=== PATIENT | female | born 1985 | race Caucasian/White ===

== ENCOUNTER 2021-11-01 16:04 | Outpatient (REF) | payer MEDICAID, SELFPAY ==
--- NOTE | ~2021-11-01 | MR_ITS ---
EXAMINATION: MR BRAIN WITHOUT AND WITH CONTRAST CLINICAL INFORMATION: Follow-up multiple sclerosis. Headaches. Numbness in legs and feet. COMPARISON: None available. TECHNIQUE: Multiplanar, multisequence imaging of the brain was performed before and after the intravenous administration of 10 mL of Gadavist. FINDINGS: No diffusion abnormalities are identified to suggest an acute infarct. The ventricles are normal in size. No mass effect or midline shift is seen. Scattered foci of T2 hyperintense signal abnormality are present in the frontoparietal white matter of both hemispheres. No extra-axial fluid collections are seen. The brainstem and cerebellum are normal. There is no abnormal parenchymal or leptomeningeal enhancement. The gradient refocused acquisition demonstrates no pathologic magnetic susceptibility artifact to indicate underlying acute or chronic blood products. The craniovertebral junction, marrow signal, and midline structures are normal. The major intracranial flow voids at the level of the [place] are preserved. The dural venous sinus flow voids are maintained. The mastoid air cells and paranasal sinuses are well aerated. MR/MR head/brain wo/w con IMPRESSION: Scattered periventricular white matter lesions without enhancement, in keeping with the patient's reported history of demyelinating disease. No active inflammatory plaques evident. No acute process.
[2021-11-01 16:36] LABS: Blood Urea Nitrogen 14 mg/dL (9-16); Estimated Glomerular Filt Rate > 60
== END 2021-11-01 16:05 | disposition home or self-care (01) ==
LOC: HO.MRI 16:04
PROVIDERS: Visit Provider Psychiatry & Neurology Neurology
DX: G37.9 Demyelinating disease of central nervous system, unspecified (principal)
CPT/HCPCS: 36415; 70553; 82565; 84520; A9585

== ENCOUNTER 2025-05-27 13:53 | Outpatient (AMB) | payer OTHER, MEDICAID, SELFPAY ==
--- NOTE | 2025-05-27 14:00 | MHC.OFFVIS ---
Vital Signs 05/27/25 14:30 05/27/25 14:33 BP 149/75 H 149/82 H Position Sitting Standing Pulse 76 84 Intake Visit Reasons: 6m / MS Chicken Dresser Required: Yes Chicken Dresser Services: Chicken Dresser Offered & Declined (family to translate) Accompanied by: Family/Other Allergies tetanus and diphtheria toxoids Allergy (Unknown, Verified 05/27/25 14:04) Unknown Medication List - Last Reconciled 05/27/25 by Milena Bridges CNP amlodipine-olmesartan 10-20 mg 1 tab PO DAILY cefuroxime axetil 500 mg PO Q12H gabapentin 300 mg PO BEDTIME mupirocin 2% 1 appl topical BID-TID oxycodone 5 mg PO Q6H PRN silver sulfadiazine 1% appl topical BID HPI Comments Details: She fell on 05/09/2025 while cooking, spilling pot of boiling water on herself resulting in schmidt to thighs and abdomen. She was seen at [facility] and then [place] [facility] a few days later for pain from the schmidt. She had another fall yesterday while packing lunch for her children without injury. She said everything went black and she fell both times. It lasted few seconds and she described it like a switch going off. She denied any associated symptoms including headaches, dizziness, or lightheadedness. She was taking amlodipine-olmesartan daily and gabapentin at bedtime. She had some occasional blurry vision off and on. Cramping and pain to R leg was less with gabapentin and sleep was also bit better. Some swelling in legs. She was still getting lightheaded and dizzy and vision goes dark. Blurred vision at times. Few headaches.?Fatigued. R leg feels weaker and feels like it drags when walking. Lost balance walking in house and fell in 11/2024 without injury. Returned from [place] on 04/19/24 after being in [place] for 10 months. 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 On BP meds since 2021. She feels she is having trouble doing things and is exhausted and does things in slow motion. No fever.? She was diagnosed as having probable multiple sclerosis in [place] on MRI of the brain on 05/20/15, which showed some periventricular hyperintensities. Sometimes she had diminution of vision in both eyes for 2 or 3 min. that may or may not be associated with her headaches. In November 2016 she was seen by the neurology department at [facility] and had a followup MRI, spinal fluid analysis, visual evoked potentials and an EEG. Those results were not available at this time. [facility] Medical History (Updated 05/27/25 @ 14:37 by Milena Bridges CNP) Pre-eclampsia Hypertension Fibromyalgia Demyelinating disease Review of Systems Const Denies chills, Denies daytime sleepiness, Denies difficulty sleeping, Denies fatigue, Denies fever(s), Denies frequent falls, Reports headache(s), Denies increased appetite, Denies poor appetite, Denies snoring, Denies weakness, Denies weight gain and Denies weight loss Eyes Denies loss of vision ENT Denies vertigo, Reports dizziness, Reports headache(s) and Denies neck pain Card Denies chest pain at rest, Denies chest pain with activity, Denies syncope, Denies leg edema, Denies palpitations, Denies dyspnea and Denies dyspnea on exertion Resp Denies cough, Denies dyspnea, Denies dyspnea on exertion and Denies snoring GI Denies abdominal pain, Denies constipation, Denies heartburn, Denies diarrhea and Denies nausea Denies urinary frequency, Denies urinary incontinence and Denies urinary urgency Musc Reports abnormal gait (balance difficulty), Denies back pain, Reports myalgias, Reports arthralgias, Denies neck pain, Reports numbness and Reports tingling Neuro Reports abnormal gait (balance difficulty), Denies vertigo, Reports dizziness, Denies syncope, Denies frequent falls, Reports headache(s), Denies lack of coordination, Denies loss of vision, Denies memory loss, Reports numbness, Denies Other visual disturbances, Denies restless legs, Denies seizure-like activity, Reports tingling, Denies paresthesias, Denies tremor(s) and Denies weakness Psych Denies anxiety, Denies depression, Denies auditory hallucinations, Denies memory loss and Denies visual hallucinations Endo Denies fatigue and Denies palpitations Physical Exam Const Other: General Appearance:? normal, in no acute distress. Heart:? S1, S2 normal, no murmurs. Lungs:? clear anteriorly and posteriorly. Musculoskeletal:? normal. Extremities:? no edema. Psych:? alert, oriented, cognitive function intact, cooperative with exam. Neuro Other: Abnormal Neurological Findings:?Bilateral slightly asymmetrical hyperreflexia particularly in the upper extremities. Sustained clonus, right ankle. 3 or 4 beats of clonus left ankle. Equivocal extensor plantar responses. Mental Status: alert and oriented X 3. Normal attention, orientation, memory, and affect. Cranial Nerves: Pupils are equal, round, and reactive to light. External ocular muscles are intact. Visual sepulveda are full, no ptosis. Face is symmetrical, no facial weakness or droop. Facial sensations are normal. Tongue protrudes in midline. Palate elevates symmetrically. Shoulder shrugging is normal Motor Examination: Normal muscle tone, bulk and strength. No atrophy or fasciculations. No drift of the extended upper extremities. DTR 3-4+. Plantars are equivocal extensor. Sensory Exam: Normal light touch, temperature, pinprick, vibration, and joint-position sensations. Rhomberg sign is absent. Coordination: No ataxia. No titubation. Gait Exam: Within normal limits. Cerebellar Signs: [id number] is okay. Extrapyramidal System: No tremor, rigidity with normal facial expressions. No bradykinesia. No bradyphrenia. Normal arm swing and posture. No propulsion or retropulsion. Speech: Normal. Results Reviewed Results Reviewed: MRI scan of brain from [facility] [place] 2015 and October 2016 show stable white matter lesions bilaterally and several that are perivent and perpendicular . MOSES was abnormal bilaterally. Spinal fluid report not available. 2016 Evoked potentials were normal including MOSES Labs were normal. 11/01/21 MRI brain: Scattered periventricular white matter lesions without enhancement, in keeping with the patient's reported history of demyelinating disease.No active inflammatory plaques evident. No change compared to the study of May 2015 from [place]. 11/12/2024 MRI brain W&WO at [facility]: Scattered small periventricular T2 hyperintense foci, demonstrating pericallosal distribution, raising the suspicion for underlying demyelinating disease (multiple sclerosis). No active enhancing lesions could be demonstrated postcontrast administration. Assessment & Plan Assessment & Plan (1) Demyelinating disease: Code(s): G37.9 - Demyelinating disease of central nervous system, unspecified Category: Medical (2) Fibromyalgia: Code(s): M79.7 - Fibromyalgia Category: Medical Plan: Continue gabapentin 300mg 1 capsule at bedtime. (3) Seizure disorder: Code(s): G40.909 - Epilepsy, unspecified, not intractable, without status epilepticus Category: Medical Plan: EEG ordered r/o seizure disorder. Plan . Orders: Orders EEG Routine Today G40.909 - Epilepsy, unspecified, not intractable, without status epilepticus Medications: New gabapentin 300 mg PO BEDTIME 90 caps 1RF 90 days Coding Level of Care Code Est Pt Level 4 (59095) Diagnoses Demyelinating disease G37.9 Fibromyalgia M79.7 Seizure disorder G40.906
[2025-05-27 14:30] VITALS: BP 149/75; PULSE 76
[2025-05-27 14:33] VITALS: BP 149/82; PULSE 84
== END 2025-05-27 14:49 | disposition home or self-care (01) ==
LOC: HO.HSM 13:53
PROVIDERS: PCP Internal Medicine; Referring Provider Internal Medicine; Visit Provider Registered Nurse
DX: G37.9 Demyelinating disease of central nervous system, unspecified (principal); M79.7 Fibromyalgia; G40.909 Epilepsy, unspecified, not intractable, without status epilepticus
CPT/HCPCS: 99214

== ENCOUNTER 2025-07-01 10:25 | Outpatient (REF) | payer OTHER, SELFPAY ==
--- NOTE | 2025-07-01 12:43 | EEG_ITS ---
History: Pre-eclampsia Hypertension Fibromyalgia Demyelinating disease She fell on 05/09/2025 while cooking, spilling pot of boiling water on herself resulting in schmidt to thighs and abdomen. She was seen at [facility] and then [place] [facility] a few days later for pain from the schmidt. She had another fall yesterday while packing lunch for her children without injury. She said everything went black and she fell both times. It lasted few seconds and she described it like a switch going off. She denied any associated symptoms including headaches, dizziness, or lightheadedness. She was taking amlodipine-olmesartan daily and gabapentin at bedtime. She had some occasional blurry vision off and on. Medication: amlodipine-olmesartan 10-20 mg 1 tab PO DAILY cefuroxime axetil 500 mg PO Q12H gabapentin 300 mg PO BEDTIME mupirocin 2% 1 appl topical BID-TID oxycodone 5 mg PO Q6H PRN silver sulfadiazine 1% appl topical BID Technical Description Photic Stimulation: Yes Hyperventilation: Yes Behavioral State: Cooperative State of Consciousness: Awake Skull Defect: None Sedation: None Handedness: Left Duration: 19:07 Egg Factory Worker Comments: Last Meal: Time / date of last symptom: Description: The waking background activity consists of a well-defined 10 hertz posterior alpha frequency that is seen symmetrically and attenuates well with eye opening while low-voltage fast frequencies predominate anteriorly. Photic stimulation hyperventilation are without activation. No focal, lateralizing or paroxysmal discharges seen. Impression: This waking EEG is within normal limits [facility]
== END 2025-07-01 10:26 | disposition home or self-care (01) ==
LOC: HO.NEURO 10:25
PROVIDERS: PCP Internal Medicine; Visit Provider Registered Nurse
DX: G40.909 Epilepsy, unspecified, not intractable, without status epilepticus (principal)
CPT/HCPCS: 95816

== ENCOUNTER → 2025-07-01 12:43 | Outpatient (BNV) | payer OTHER, SELFPAY | PROVIDERS: PCP Internal Medicine; Visit Provider Psychiatry & Neurology Neurology | DX: G40.909 Epilepsy, unspecified, not intractable, without status epilepticus (principal) | CPT/HCPCS: 95816 ==

== ENCOUNTER 2025-07-07 10:59 | Outpatient (AMB) | payer OTHER, MEDICAID, SELFPAY ==
--- NOTE | 2025-07-07 11:00 | MHC.OFFVIS ---
Vital Signs 07/07/25 11:13 BP 154/83 H Position Sitting Pulse 84 Intake Visit Reasons: results Medical Coding Specialist Required: Yes Medical Coding Specialist Services: Medical Coding Specialist Offered & Declined (family to translate) Accompanied by: Family/Other Allergies tetanus and diphtheria toxoids Allergy (Unknown, Verified 07/07/25 11:03) Unknown Medication List - Last Reconciled 07/07/25 by Milena Bridges CNP amlodipine-olmesartan 10-20 mg 1 tab PO DAILY cefuroxime axetil 500 mg PO Q12H gabapentin 300 mg PO BEDTIME 90 days mupirocin 2% 1 appl topical BID-TID oxycodone 5 mg PO Q6H PRN silver sulfadiazine 1% appl topical BID HPI Comments Details: She was regular. No further falls. No episodes of syncope. No significant episodes of dizziness. She had about 4 headache days in the last month and few episodes of blurry vision off and on. Gabapentin was still helping with pain and cramping in legs. She did not take blood pressure medication this morning and was sometimes missing dose. She had BP monitor at home, but was not checking BP. She had handicap placard form to be completed. She fell on 05/09/2025 while cooking, spilling pot of boiling water on herself resulting in schmidt to thighs and abdomen. She was seen at [facility] and then [place] [facility] a few days later for pain from the schmidt. She had another fall in mid-05/2025 while packing lunch for her children without injury. She said everything went black when she fell both times. It lasted few seconds and she described it like a switch going off. She denied any associated symptoms including headaches, dizziness, or lightheadedness. She had some occasional blurry vision off and on. Cramping and pain to R leg was less with gabapentin and sleep was also bit better. Some swelling in legs. She was still getting lightheaded and dizzy and vision goes dark. Blurred vision at times. Few headaches.?Fatigued. R leg feels weaker and feels like it drags when walking. Lost balance walking in house and fell in 11/2024 without injury. Returned from [place] on 04/19/24 after being in [place] for 10 months. 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 On BP meds since 2021. She feels she is having trouble doing things and is exhausted and does things in slow motion. No fever.? She was diagnosed as having probable multiple sclerosis in [place] on MRI of the brain on 05/20/15, which showed some periventricular hyperintensities. Sometimes she had diminution of vision in both eyes for 2 or 3 min. that may or may not be associated with her headaches. In November 2016 she was seen by the neurology department at [facility] and had a followup MRI, spinal fluid analysis, visual evoked potentials and an EEG. Those results were not available at this time. [facility] Medical History (Updated 05/27/25 @ 14:37 by Milena Bridges CNP) Pre-eclampsia Hypertension Fibromyalgia Demyelinating disease Review of Systems Const Denies chills, Denies daytime sleepiness, Denies difficulty sleeping, Denies fatigue, Denies fever(s), Denies frequent falls, Reports headache(s), Denies increased appetite, Denies poor appetite, Denies snoring, Denies weakness, Denies weight gain and Denies weight loss Eyes Denies loss of vision ENT Denies vertigo, Reports dizziness, Reports headache(s) and Denies neck pain Card Denies chest pain at rest, Denies chest pain with activity, Denies syncope, Denies leg edema, Denies palpitations, Denies dyspnea and Denies dyspnea on exertion Resp Denies cough, Denies dyspnea, Denies dyspnea on exertion and Denies snoring GI Denies abdominal pain, Denies constipation, Denies heartburn, Denies diarrhea and Denies nausea Denies urinary frequency, Denies urinary incontinence and Denies urinary urgency Musc Reports abnormal gait (balance difficulty), Denies back pain, Reports myalgias, Reports arthralgias, Denies neck pain, Reports numbness and Reports tingling Neuro Reports abnormal gait (balance difficulty), Denies vertigo, Reports dizziness, Denies syncope, Denies frequent falls, Reports headache(s), Denies lack of coordination, Denies loss of vision, Denies memory loss, Reports numbness, Denies Other visual disturbances, Denies restless legs, Denies seizure-like activity, Reports tingling, Denies paresthesias, Denies tremor(s) and Denies weakness Psych Denies anxiety, Denies depression, Denies auditory hallucinations, Denies memory loss and Denies visual hallucinations Endo Denies fatigue and Denies palpitations Physical Exam Const Other: General Appearance:? normal, in no acute distress. Heart:? S1, S2 normal, no murmurs. Lungs:? clear anteriorly and posteriorly. Musculoskeletal:? normal. Extremities:? no edema. Psych:? alert, oriented, cognitive function intact, cooperative with exam. Neuro Other: Abnormal Neurological Findings:?Bilateral slightly asymmetrical hyperreflexia particularly in the upper extremities. Sustained clonus, right ankle. 3 or 4 beats of clonus left ankle. Equivocal extensor plantar responses. Mental Status: alert and oriented X 3. Normal attention, orientation, memory, and affect. Cranial Nerves: Pupils are equal, round, and reactive to light. External ocular muscles are intact. Visual sepulveda are full, no ptosis. Face is symmetrical, no facial weakness or droop. Facial sensations are normal. Tongue protrudes in midline. Palate elevates symmetrically. Shoulder shrugging is normal Motor Examination: Normal muscle tone, bulk and strength. No atrophy or fasciculations. No drift of the extended upper extremities. DTR 3-4+. Plantars are equivocal extensor. Sensory Exam: Normal light touch, temperature, pinprick, vibration, and joint-position sensations. Rhomberg sign is absent. Coordination: No ataxia. No titubation. Gait Exam: Within normal limits. Cerebellar Signs: [id number] is okay. Extrapyramidal System: No tremor, rigidity with normal facial expressions. No bradykinesia. No bradyphrenia. Normal arm swing and posture. No propulsion or retropulsion. Speech: Normal. Results Reviewed Results Reviewed: [address] [address] Electroencephalogram Report Signed Patient: Tran Bates MR#: [id number] : 1985 Acct:[id number] Age/Sex: 40 / F ADM Date: 07/01/25 Loc: HO.NEURO Attending Dr: Milena Bridges CNP Ordering Physician: Milena Bridges CNP Date of Service: 07/01/25 Procedure(s): EEG Routine Accession Number(s): [id number] cc: MESSI DURAN MD~ Reason for Exam: G40.909 - Epilepsy, unspecified, not intractable, without status epilept... History: Pre-eclampsia Hypertension Fibromyalgia Demyelinating disease She fell on 05/09/2025 while cooking, spilling pot of boiling water on herself resulting in schmidt to thighs and abdomen. She was seen at [facility] and then [place] a few days later for pain from the schmidt. She had another fall yesterday while packing lunch for her children without injury. She said everything went black and she fell both times. It lasted few seconds and she described it like a switch going off. She denied any associated symptoms including headaches, dizziness, or lightheadedness. She was taking amlodipine-olmesartan daily and gabapentin at bedtime. She had some occasional blurry vision off and on. Medication: amlodipine-olmesartan 10-20 mg 1 tab PO DAILY cefuroxime axetil 500 mg PO Q12H gabapentin 300 mg PO BEDTIME mupirocin 2% 1 appl topical BID-TID oxycodone 5 mg PO Q6H PRN silver sulfadiazine 1% appl topical BID Technical Description Photic Stimulation: Yes Hyperventilation: Yes Behavioral State: Cooperative State of Consciousness: Awake Skull Defect: None Sedation: None Handedness: Left Duration: 19:07 Glass Sagger Comments: Last Meal: Time / date of last symptom: Description: The waking background activity consists of a well-defined 10 hertz posterior alpha frequency that is seen symmetrically and attenuates well with eye opening while low-voltage fast frequencies predominate anteriorly. Photic stimulation hyperventilation are without activation. No focal, lateralizing or paroxysmal discharges seen. Impression: This waking EEG is within normal limits Dictated By: Nereyda Ocampo MD Signed By: <Electronically signed by Nereyda Ocampo MD> 07/01/25 3023 --- MRI scan of brain from [facility] November 2015 and October 2016 show stable white matter lesions bilaterally and several that are perivent and perpendicular . MOSES was abnormal bilaterally. Spinal fluid report not available. 2016 Evoked potentials were normal including MOSES Labs were normal. 11/01/21 MRI brain: Scattered periventricular white matter lesions without enhancement, in keeping with the patient's reported history of demyelinating disease.No active inflammatory plaques evident. No change compared to the study of May 2015 from [place]. 11/12/2024 MRI brain W&WO at [facility]: Scattered small periventricular T2 hyperintense foci, demonstrating pericallosal distribution, raising the suspicion for underlying demyelinating disease (multiple sclerosis). No active enhancing lesions could be demonstrated postcontrast administration. Assessment & Plan Assessment & Plan (1) Demyelinating disease: Code(s): G37.9 - Demyelinating disease of central nervous system, unspecified Category: Medical Plan: EEG results reviewed, within normal limits. Handicap placard form completed and returned to patient. (2) Fibromyalgia: Code(s): M79.7 - Fibromyalgia Category: Medical Plan: Continue gabapentin 300mg 1 capsule at bedtime. Follow up in 6 months or sooner as needed. (3) Hypertension: Code(s): I10 - Essential (primary) hypertension Category: Medical Qualifiers: Hypertension type: unspecified Qualified Code(s): I10 - Essential (primary) hypertension Plan: BP somewhat elevated - she did not take amlodipine-olmesartan yet today. She was educated on the importance of taking medication as prescribed, and importance of blood pressure control, along with signs/symptoms of hyper/hypotension. She was encouraged to check BP few times a week and keep log, follow up with PCP. Medications: Refilled gabapentin 300 mg PO BEDTIME 90 caps 1RF 90 days Coding Level of Care Code Est Pt Level 4 (50203) Diagnoses Demyelinating disease G37.9 Fibromyalgia M79.7 Hypertension, unspecified type I10 Hypertension type: unspecified
[2025-07-07 11:13] VITALS: BP 154/83; PULSE 84
== END 2025-07-07 11:20 | disposition home or self-care (01) ==
LOC: HO.HSM 11:00
PROVIDERS: PCP Internal Medicine; Visit Provider Registered Nurse
DX: G37.9 Demyelinating disease of central nervous system, unspecified (principal); M79.7 Fibromyalgia; I10 Essential (primary) hypertension
CPT/HCPCS: 99214